=== PATIENT | male | born 1980 | race Caucasian/White ===

== ENCOUNTER 2016-06-23 22:10 | Inpatient (IN) ==
[2016-06-23] MEDS ORDERED: Haloperidol Lactate 5 MG/ML VIAL IM PRN (23:07)
[2016-06-23] MEDS ORDERED: Ibuprofen 400 MG TABLET PO PRN (23:07)
[2016-06-23] MEDS ORDERED: MOM Conc 10 ML UD.LIQ PO PRN (23:07)
[2016-06-23] MEDS ORDERED: *HR* LORazepam 2 MG/ML VIAL IM PRN (23:07)
[2016-06-23] MEDS ORDERED: *HR* LORazepam 1 MG TABLET PO PRN (23:07)
[2016-06-23] MEDS ORDERED: Mag Hydrox/Al Hydrox/Simeth 30 ML UDC PO PRN (23:07)
[2016-06-23] MEDS ORDERED: traZODone 50 MG TABLET PO PRN (23:07)
[2016-06-23] MEDS ORDERED: Nicotine 2 MG GUM BC PRN (23:07)
[2016-06-23] MEDS ORDERED: hydrOXYzine pamoate 25 MG CAPSULE PO PRN (23:10)
--- NOTE | 2016-06-24 14:18 | Psychiatry History & Physical ---
Date of Encounter: 06/24/16 Time of Encounter: 13:30 History of Present Illness Patient Stated Chief Complaint: Suicidal Medicare Admission Attestation: For traditional Medicare patients the provided hospital inpatient services are reasonable and necessary and in the case of services not specified as inpatient -only under 42 CFR 419.22 (n), that they are appropriately provided as inpatient services in accordance 42 CFR 412.3. For Critical Access Hospital the patient may reasonably be expected to be discharged or transferred to a hospital within 96 hours after admission to the Critical Access Hospital. Admitted From: Hospital to Hospital Transfer ([facility]) History of Present Illness: Mr. Banks is a 35 year old male transferred from [facility] for evaluation treatment of suicidal ideation was intense to cut his wrists. Patient states he has been having marital problems and from his . Currently he lives with his mother and share custody was his of his 2 children. Patient has been seeing a counselor and also has been prescribed Paxil for the past 2 months in addition to hydroxyzine for anxiety. Patient had no previous psychiatric hospitalization or outpatient treatment. She works in a factory and he chew tobacco for the past 17 years and consume caffeinated beverages in addition to binge drinking alcohol. Patient complained of feeling focused and obsessed with his thoughts about his and unable to shut down or take his mind off this topic and as a result he is not able to sleep. Past Med Surg Social Fam HX - Past Medical History Medical history: no medical history - Past Psychiatric History Psychiatric history: Reports: no psych history - Past Surgical History Surgical History: no surgical history - Social History Smoking Status: Current some day smoker Smokeless Tobacco Status: Yes Alcohol use: occasionally Drug use: none - Family History Mother Hx Family GI Disorders: Yes (Gullbladder issues) Father Hx Family Cardiac Disorders: Yes (ID) Medications & Allergies HydrOXYzine Pamoate [Vistaril] 50 mg PO TID PRN 06/23/16 [History] Paroxetine [Paxil] 30 mg PO DAILY 06/23/16 [History] Allergies No Known Allergies Allergy (Verified 02/16/16 02:03) Review of Systems Psychiatric: Reports: depression, anxiety, abnormal sleep pattern, suicidal ideation, panic attacks Mental Status Exam Patient orientation: Yes Person, Yes Time, Yes Place Level of alertness: Alert Patient appearance: Appropriate, Well Groomed Behavior: calm, cooperative, anxious Psychomotor activity: Normal Eye contact: Minimal Contact Mood description: Depressed, Anxious Affect description: congruent with mood, constricted Speech pattern: Normal rate, Normal rhythm, Normal tone Speech volume: Normal Thought process: Linear, Goal Oriented Thought content: Yes Suicidal ideation, No Homicidal ideation, No Overt delusions, Yes Preoccupation, Yes Obsessive thoughts Perceptual disturbances: No Auditory hallucinations, No Visual hallucinations Attention span: Capable of Focused Attention Memory description: Grossly Intact Patient reliability: Reliable Historian Intelligence estimate: Average Judgment: Limited Insight: Partial Results - Vital Signs Vital signs: Temp Pulse Resp BP 97.9 F 70 16 112/77 06/24/16 12:10 06/24/16 12:10 06/24/16 12:10 06/24/16 12:10 Assessment and Plan (1) Major depression, single episode Current visit: Yes Status: Acute Plan: Admit inpatient for safety and stabilization, Close observation, Suicide Precautions per unit protocol, Encourage participation in unit milieu, Group Therapy, Monitor sleep, Monitor appetite Additional Plan: Will add Abilify 5 mg at bedtime. Benefits and side effects were discussed patient is agreeable to starts and will monitor Risks, benefits, side effects, alternatives discussed w/pt: Yes Patient agreeable to treatment: Yes Estimated Length of Stay (Days): 5 Qualifiers: Active/Remission status: currently active Major depression episode severity : severe Psychotic features: without psychotic features Qualified Code(s): F32.2 - Major depressive disorder, single episode, severe without psychotic features
[2016-06-24] MEDS: ARIPiprazole 5 MG TABLET PO SCH (21:18)
--- NOTE | 2016-06-25 13:50 | Psychiatry Progress Note ---
Date of Encounter: 06/25/16 Time of Encounter: 13:00 Subjective Interval history: Patient seen for follow-up. He reports no benefits or side effects of adding Abilify. He is guarded and avoiding questions and irritable. I explained to him the goal of hospitalization and criteria for discharge and I ask him to decide if he is anxious to go back to work soon. Otherwise he spends most of time in his room sleeping and did not attend or participate in any groups he does not seem interested in those activities. He is vague about suicidal ideation and and his goal for treatment. He was educated about hospitalization and treatment plan and treatment goals since this is his first psychiatric admission. Review of Systems Psychiatric: Reports: depression, anxiety, abnormal sleep pattern, suicidal ideation, panic attacks Objective: Exam Patient orientation: Yes Person, Yes Time, Yes Place Level of alertness: Alert Patient appearance: Appropriate, Well Groomed Behavior: cooperative, anxious, hostile, guarded Psychomotor activity: Normal Eye contact: Avoids Eye Contact Mood description: Depressed, Anxious, Irritable Affect description: congruent with mood, constricted Speech pattern: Normal rate, Normal rhythm, Normal tone Speech volume: Normal Thought process: Linear, Goal Oriented Thought content: Yes Suicidal ideation, No Homicidal ideation, No Overt delusions Perceptual disturbances: No Auditory hallucinations, No Visual hallucinations Judgment: Fair Insight: Partial Results - Vital Signs Vital Signs: Temp Pulse Resp BP 97.7 F 64 16 125/86 06/25/16 09:00 06/25/16 09:00 06/25/16 09:00 06/25/16 09:00 Assessment and Plan (1) Major depression, single episode Current visit: Yes Status: Acute Plan: Continue hospitalization, Close observation, Suicide Precautions per unit protocol, Encourage participation in unit milieu, Group Therapy, Monitor sleep, Monitor appetite Risks, benefits, side effects, alternatives discussed w/pt: Yes Patient agreeable to treatment: Yes Qualifiers: Active/Remission status: currently active Major depression episode severity : severe Psychotic features: without psychotic features Qualified Code(s): F32.2 - Major depressive disorder, single episode, severe without psychotic features Consult Discharge Plan - Plan Referrals: [facility] [Outside] - 08/05/16 2:00 pm (The above appointment is with Neeta Patricia. Please arrive 10 minutes early for all appointments to complete the check-in process. Please bring your insurance card and photo ID to this appointment. If you are unable to keep this appointment, 24 hour business notice of cancellation is expected. If you miss your new patient appointment, you cannot be re-scheduled in this practice. The [facility] is the 1st [facility] in [place], [place]. This is the first available new patient appointment. You may call the office regularly to check for cancellations that would allow you to be seen sooner.) [facility] [Outside] - 07/01/16 8:30 am (The above appointment is with Roby psychiatric prescriber.)
[2016-06-25] MEDS: ARIPiprazole 5 MG TABLET PO SCH (20:30)
[2016-06-26 09:56] VITALS: BP 128/88
--- NOTE | 2016-06-26 11:27 | Discharge Summary ---
Date of Encounter: 06/27/16 Time of Encounter: 11:25 Diagnosis - Discharge Diagnosis (1) Major depression, single episode Status: Acute Qualifiers: Active/Remission status: currently active Major depression episode severity : severe Psychotic features: without psychotic features Qualified Code(s): F32.2 - Major depressive disorder, single episode, severe without psychotic features Medications - Discharge Medications Prescriptions: Aripiprazole [Abilify] 5 mg PO HS #30 tablet LORazepam [Ativan] 0.5 mg PO BID PRN #30 tablet PRN Reason: Anxiety Paroxetine [Paxil] 30 mg PO DAILY #30 tablet HydrOXYzine Pamoate [Vistaril] 50 mg PO TID PRN 06/23/16 [History] Aripiprazole [Abilify] 5 mg PO HS #30 tablet 06/26/16 [Rx] LORazepam [Ativan] 0.5 mg PO BID PRN #30 tablet 06/26/16 [Rx] Paroxetine [Paxil] 30 mg PO DAILY #30 tablet 06/26/16 [Rx] Allergies No Known Allergies Allergy (Verified 02/16/16 02:03) Provider Date of admission: 06/23/16 22:10 Primary care physician: PCP NO Discharging clinician: Nathanael Sutton Assessment and Plan - Patient/Caregiver Discharge Instructions Activity: resume usual activities as tolerated Diet: regular diet - Follow up Plan Follow up with: [facility] [Outside] - 08/05/16 2:00 pm (The above appointment is with Neeta Patricia. Please arrive 10 minutes early for all appointments to complete the check-in process. Please bring your insurance card and photo ID to this appointment. If you are unable to keep this appointment, 24 hour business notice of cancellation is expected. If you miss your new patient appointment, you cannot be re-scheduled in this practice. The [facility] is the 1st building behind [facility] in [place], [place]. This is the first available new patient appointment. You may call the office regularly to check for cancellations that would allow you to be seen sooner.) [facility] [Outside] - 07/01/16 8:30 am (The above appointment is with Roby psychiatric prescriber.) Functional capacity at discharge: independent ambulation Overall status at discharge: Stable Disposition: Home, Self-Care Hospital Course Hospital course: Mr. Banks is a 35 year old male admitted for evaluation and treatment of depression and suicidal ideation. For details of the admission please see H&P On the unit, patient was continued on his Paxil and then we added Abilify 5 mg to help patient with his obsessive thoughts. Patient reported improvements in his sleep and mood. He was denying any suicidal ideation and planning to continue therapy and medication. He participated minimally in activities and groups, he he was interested in reading self-help books. He did not give permission to home health care social worker to contact his family. Prior to discharge he was medically stable and nonsuicidal. His discharge plans were completed by social work. - Time Spent with Patient Total time spent providing and/or coordinating discharge services: Greater than 30 minutes Quality - Multiple Antipsychotics Patient discharged on 2 or more antipsychotic medications: No Procedures - Procedures Procedures: Medication Management, Crisis Stabilization, Supportive Therapy, Group Therapy, Psychoeducational Therapy Mental Status Exam - Mental Status Exam Patient orientation: Yes Person, Yes Time, Yes Place Level of alertness: Alert Patient appearance: Appropriate, Unkempt Behavior: calm, cooperative, guarded Psychomotor activity: Normal Eye contact: Fleeting Contact Mood description: Euthymic/stable Affect description: congruent with mood, constricted Speech pattern: Normal rate, Normal rhythm, Normal tone Speech Volume: Normal Thought process: Linear, Goal Oriented Thought Content: No Suicidal ideation, No Homicidal ideation, No Overt delusions Perceptual Disturbances: No Auditory hallucinations, No Visual hallucinations Judgment: Limited Insight: Partial
== END 2016-06-26 12:20 | disposition home or self-care (01) | DRG 885 ==
LOC: 1ANU 22:10
PROVIDERS: ADMIT Psychiatry & Neurology Psychiatry; ATTEND Psychiatry & Neurology Psychiatry